=== PATIENT | female | born 1980 | race Caucasian/White ===

== ENCOUNTER 2019-01-05 14:17 | Emergency (ER) | payer SELFPAY ==
[2019-01-05] MEDS ORDERED: FENTANYL CITR 100 MCG/2 ML ONE (15:18)
[2019-01-05] MEDS ORDERED: NA CHLORIDE 0.9% 1,000 ML ONE (15:18)
[2019-01-05] MEDS ORDERED: LORazepam 2 MG/ML VIAL ONE (15:18)
[2019-01-05 15:29] LABS: Absolute Monocytes 0.5 K/uL (0.1-1.3); Absolute Neutrophil 8.6 K/uL (1.8-8.0); Basophils % 0.7 % (0-1.3); Eosinophils % 0.4 % (0-4.4); Hematocrit 41.9 % (36.0-45.0); Lymphocytes % 18.3 % (15.3-44.8); MPV 7.3 fL (7.6-11.3); RBC Red Blood Cell Count 4.43 M/uL (3.86-4.86)
--- NOTE | 2019-01-05 15:42 | RAD REPORT ---
EXAM DESCRIPTION: US - Abdomen Exam Limited - 01/05/2019 3:36 pm CLINICAL HISTORY: Abdominal pain COMPARISON: None. FINDINGS: Gallbladder size is normal. No gallstones, wall thickening or pericholecystic fluid. Commo n bile duct is normal with no common duct stone identified. The liver and spleen show no suspicious f indings. The pancreas is normal. No hydronephrosis or suspicious mass in either kidney. Aorta and IVC show no suspicious findings. No ascites or bulky lymphadenopathy. IMPRESSION: Normal abdominal ultrasound.
[2019-01-05 15:58] LABS: Bilirubin Direct 0.1 mg/dL (0-0.2); Bilirubin Total 0.4 mg/dL (0.2-1.0); Potassium 3.4 mmol/L (3.5-5.1); Protein, Total 7.3 g/dL (6.4-8.2); Thyroid Stimulating Hormone 1.18 uIU/mL (0.360-3.740)
[2019-01-05] MEDS ORDERED: SUCRALFATE 1 GM TABLET ONE (16:25)
--- NOTE | 2019-01-05 16:47 | ER ---
Nurse's Notes [facility] Name: Stephani Stock Age: 38 yrs Sex: Female : 1980 Arrival Date: 01/05/2019 Time: 14:18 Bed 2 Private MD: Diagnosis: Epigastric pain;Nausea Presentation: 01/05 14:35 Presenting complaint: Patient states: Intermittent epigastric pain radiating to ofe ph upper quadrants and back, also c/o nausea, denies V/D, symptoms began 3-4 days ago. Transition of care: patient was not received from another setting of care. Onset of symptoms was January 05, 2019. Risk Assessment: Do you want to hurt yourself or someone else? Patient reports no desire to harm self or others. Initial Sepsis Screen: Does the patient meet any 2 criteria? No. Patient's initial sepsis screen is negative. Does the patient have a suspected source of infection? No. Patient's initial sepsis screen is negative. Care prior to arrival: None. 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 - Social history:: Smoking status: Patient uses tobacco products, smokes one-half pack cigarettes per day. - Ebola Screening: : No symptoms or risks identified at this time. Screenin:39 Abuse screen: Denies threats or abuse. Denies injuries from another. Nutritional ph screening: No deficits noted. Tuberculosis screening: No symptoms or risk factors identified. Fall Risk None identified. Assessment: 14:30 General: Appears in no apparent distress. comfortable, well groomed, Behavior is calm, ph cooperative, appropriate for age, Denies fever. Pain: Complains of pain in epigastric area Pain radiates to right upper quadrant and left upper quadrant. Neuro: Level of Consciousness is awake, alert, obeys commands, Oriented to person, place, time, situation. Cardiovascular: Capillary refill < 3 seconds in bilateral fingers Patient's skin is warm and dry. Respiratory: Airway is patent Respiratory effort is even, unlabored, Respiratory pattern is regular, symmetrical, Denies shortness of breath. GI: Abdomen is flat, non-distended, Bowel sounds present X 4 quads. Reports epigastric pain, nausea, Patient currently denies diarrhea, vomiting. Derm: Skin is intact, is healthy with good turgor, Skin is pink, warm \T\ dry. 16:00 Reassessment: Patient appears in no apparent distress at this time. Patient and/or ph family updated on plan of care and expected duration. Pain level reassessed. Patient is alert, oriented x 3, equal unlabored respirations, skin warm/dry/pink. Pt resting quietly, awaiting lab and US results. Vital Signs: 14:36 BP 150 / 90; Pulse 86; Resp 18; Temp 98.0; Pulse Ox 100% on R/A; Weight 72.57 kg; ph 15:30 BP 144 / 93; Pulse 75; Resp 16; Pulse Ox 99% on R/A; ph 16:04 BP 136 / 87; Pulse 76; Resp 18; Pulse Ox 98% on R/A; ph ED Course: 14:18 Patient arrived in ED. ph 14:20 aLvinia Lazar [facility]C [facility]. snw 14:20 Jr Muñoz MD is Attending Physician. snw 14:34 Yessi Blackman, CLAUDIA is Primary Nurse. ph 14:36 Triage completed. ph 14:39 Arm band placed on. ph 15:00 Patient has correct armband on for positive identification. Bed in low position. Call ph light in reach. Side rails up X 1. Pulse ox on. NIBP on. Warm blanket given. 15:18 Ultrasound completed. Patient tolerated well. sg3 15:26 Inserted saline lock: 22 gauge in right forearm, using aseptic technique. Blood ph collected. 15:36 US Abdomen Limited In Process Unspecified. EDMS 17:20 No provider procedures requiring assistance completed. IV discontinued, intact, ph bleeding controlled, No redness/swelling at site. Pressure dressing applied. Administered Medications: 15:25 Drug: NS 0.9% 1000 ml Route: IV; Rate: 1 bolus; Site: left forearm; ph 16:26 Follow up: Response: No adverse reaction; IV Status: Completed infusion ph 15:25 Drug: fentaNYL (PF) 25 mcg Route: IVP; Site: left forearm; ph 16:26 Follow up: Response: No adverse reaction ph 15:25 Drug: Ativan 1 mg Route: IVP; Site: left forearm; ph 16:26 Follow up: Response: No adverse reaction ph 16:27 Drug: CarafATE 1 grams Route: PO; ph 16:27 Follow up: Response: No adverse reaction ph 17:19 Drug: Bentyl 20 mg Route: PO; ph 17:20 Follow up: Response: No adverse reaction ph Outcome: 16:45 Discharge ordered by MD. lindsay 17:22 Patient left the ED. ph 17:22 Discharged to home ambulatory. ph 17:22 Condition: good 17:22 Discharge instructions given to patient, Instructed on discharge instructions, follow up and referral plans. medication usage, Demonstrated understanding of instructions, follow-up care, medications, Prescriptions given X 2. Signatures: Dispatcher [employer] EDMS Lavinia Lazar, LUCIC MICA PARTS SPRAYER-Yessi Mclaughlin RN RN Astrid Reyes sg3 Corrections: (The following items were deleted from the chart) 16:04 15:30 BP 136 / 87; Pulse 76bpm; Resp 18bpm; Pulse Ox 98% RA; ph ph
--- NOTE | 2019-01-05 16:47 | EDPHYS ---
Physician Documentation [facility] Name: Stephani Stock Age: 38 yrs Sex: Female : 1980 Arrival Date: 01/05/2019 Time: 14:18 Bed 2 Private MD: ED Physician Jr Muñoz HPI: 01/05 15:05 This 38 yrs old Female presents to ER via Ambulatory with complaints of snw Epigastric Pain. 15:05 The patient presents with abdominal pain in the epigastric area, in the upper abdomen. snw Onset: The symptoms/episode began/occurred suddenly, 4 day(s) ago, and became worse and became persistent. The symptoms do not radiate. Associated signs and symptoms: Pertinent positives: nausea. The symptoms are described as crampy. Severity of pain: At its worst the pain was severe incapacitating. The patient has not experienced similar symptoms in the past. It is unknown whether or not the patient has recently seen a physician. recent 22lb wt loss in 2 months (unintentional). 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 - Social history:: Smoking status: Patient uses tobacco products, smokes one-half pack cigarettes per day. - Ebola Screening: : No symptoms or risks identified at this time. ROS: 15:04 Constitutional: Negative for fever, chills, and weight loss, Eyes: Negative for injury, snw pain, redness, and discharge, ENT: Negative for injury, pain, and discharge, Neck: Negative for injury, pain, and swelling, Cardiovascular: Negative for chest pain, palpitations, and edema, Respiratory: Negative for shortness of breath, cough, wheezing, and pleuritic chest pain, Back: Negative for injury and pain, : Negative for injury, bleeding, discharge, and swelling, MS/Extremity: Negative for injury and deformity, Skin: Negative for injury, rash, and discoloration, Neuro: Negative for headache, weakness, numbness, tingling, and seizure, Psych: Negative for depression, anxiety, suicide ideation, homicidal ideation, and hallucinations. 15:04 Abdomen/GI: Positive for nausea, abdominal cramps. Exam: 15:04 Constitutional: This is a well developed, well nourished patient who is awake, alert, snw and in no acute distress. Head/Face: Normocephalic, atraumatic. Eyes: Pupils equal round and reactive to light, extra-ocular motions intact. Lids and lashes normal. Conjunctiva and sclera are non-icteric and not injected. Cornea within normal limits. Periorbital areas with no swelling, redness, or edema. ENT: Nares patent. No nasal discharge, no septal abnormalities noted. Tympanic membranes are normal and external auditory canals are clear. Oropharynx with no redness, swelling, or masses, exudates, or evidence of obstruction, uvula midline. Mucous membranes moist. Neck: Trachea midline, no thyromegaly or masses palpated, and no cervical lymphadenopathy. Supple, full range of motion without nuchal rigidity, or vertebral point tenderness. No Meningismus. Chest/axilla: Normal chest wall appearance and motion. Nontender with no deformity. No lesions are appreciated. Cardiovascular: Regular rate and rhythm with a normal S1 and S2. No gallops, murmurs, or rubs. Normal PMI, no JVD. No pulse deficits. Respiratory: Lungs have equal breath sounds bilaterally, clear to auscultation and percussion. No rales, rhonchi or wheezes noted. No increased work of breathing, no retractions or nasal flaring. Back: No spinal tenderness. No costovertebral tenderness. Full range of motion. Skin: Warm, dry with normal turgor. Normal color with no rashes, no lesions, and no evidence of cellulitis. MS/ Extremity: Pulses equal, no cyanosis. Neurovascular intact. Full, normal range of motion. Neuro: Awake and alert, GCS 15, oriented to person, place, time, and situation. Cranial nerves II-XII grossly intact. Motor strength 5/5 in all extremities. Sensory grossly intact. Cerebellar exam normal. Normal gait. 15:04 Abdomen/GI: Inspection: abdomen appears normal, Bowel sounds: normal, Palpation: moderate abdominal tenderness, in the right upper quadrant and left upper quadrant. 16:42 ECG was reviewed by the Attending Physician. snw Vital Signs: 14:36 BP 150 / 90; Pulse 86; Resp 18; Temp 98.0; Pulse Ox 100% on R/A; Weight 72.57 kg; ph 15:30 BP 144 / 93; Pulse 75; Resp 16; Pulse Ox 99% on R/A; ph 16:04 BP 136 / 87; Pulse 76; Resp 18; Pulse Ox 98% on R/A; ph MDM: 14:21 Patient medically screened. snw 16:47 Data reviewed: vital signs, nurses notes. Data interpreted: Pulse oximetry: on room air snw is 98 %. Interpretation: normal. Counseling: I had a detailed discussion with the patient and/or guardian regarding: the historical points, exam findings, and any diagnostic results supporting the discharge/admit diagnosis, the presence of at least one elevated blood pressure reading (>120/80) during this emergency department visit, lab results, radiology results, the need for outpatient follow up, to return to the emergency department if symptoms worsen or persist or if there are any questions or concerns that arise at home. Special discussion: Based on the patient's history, exam, and Dx evaluation, there is no indication for emergent intervention or inpatient Tx. It is understood by the patient/guardian that if the Sx's persist or worsen they need to return immediately for re-evaluation. Based on the patient's Hx, exam, and Dx evaluation, there is no indication for emergent surgery or inpatient Tx. It is understood by the patient/guardian that if the Sx's persist or worsen they need to return immediately for re-evaluation. Based on the history and exam findings, there is no indication for further emergent testing or inpatient evaluation. 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 I discussed with the patient/guardian the need to see the primary care provider for further evaluation of the symptoms. 01/05 14:33 Order name: Basic Metabolic Panel; Complete Time: 16: snw 01/05 14:33 Order name: CBC with Diff; Complete Time: 15:37 snw 01/05 14:33 Order name: Hepatic Function; Complete Time: 16: snw 01/05 14:33 Order name: Lipase; Complete Time: 16:01 snw 01/05 14:33 Order name: TSH; Complete Time: 16: 01/05 14:33 Order name: Test, Serum; Complete Time: 15:45 01/05 14:33 Order name: IV Saline Lock; Complete Time: 15:26 01/05 14:33 Order name: US Abdomen Limited; Complete Time: 15:45 01/05 16:02 Order name: EKG; Complete Time: 16:02 01/05 14:33 Order name: Labs collected and sent; Complete Time: 15:01/05 16:02 Order name: EKG - Nurse/Tech; Complete Time: 16:26 snw Administered Medications: 15:25 Drug: NS 0.9% 1000 ml Route: IV; Rate: 1 bolus; Site: left forearm; ph 16:26 Follow up: Response: No adverse reaction; IV Status: Completed infusion ph 15:25 Drug: fentaNYL (PF) 25 mcg Route: IVP; Site: left forearm; ph 16:26 Follow up: Response: No adverse reaction ph 15:25 Drug: Ativan 1 mg Route: IVP; Site: left forearm; ph 16:26 Follow up: Response: No adverse reaction ph 16:27 Drug: CarafATE 1 grams Route: PO; ph 16:27 Follow up: Response: No adverse reaction ph 17:19 Drug: Bentyl 20 mg Route: PO; ph 17:20 Follow up: Response: No adverse reaction ph Disposition: 17:35 Co-signature as Attending Physician, Jr Muñoz MD I agree with the assessment and kdr plan of care. Disposition: 01/05/19 16:45 Discharged to Home. Impression: Epigastric pain, Nausea. - Condition is Stable. - Discharge Instructions: Abdominal Pain, Adult, Gastritis, Adult, Nausea, Adult, Upper Endoscopy, Upper Endoscopy, Care After, [place] Diet. - Prescriptions for Bentyl 20 mg Oral Tablet - take 1 tablet by ORAL route every 6 hours As needed; 20 tablet. Protonix 40 mg Oral Tablet - take 1 tablet by ORAL route once daily; 30 tablet. promethazine 25 mg Oral Tablet - take 1 tablet by ORAL route every 6 hours As needed; 20 tablet. - Work release form, Medication Reconciliation Form, Thank You Letter, Antibiotic Education, Prescription Opioid Use form. - Follow up: Private Physician; When: 2 - 3 days; Reason: Recheck today's complaints, Continuance of care, Re-evaluation by your physician. Follow up: Emergency Department; When: As needed; Reason: Worsening of condition. Signatures: Dispatcher [employer] Jr Norwood MD MD [facility] Lavinia Lazar, DEB-C MUFFLER TENDER-Yessi Mclaughlin RN RN ph Corrections: (The following items were deleted from the chart) 17:22 16:45 01/05/2019 16:45 Discharged to Home. Impression: Epigastric pain; Nausea. ph Condition is Stable. Forms are Medication Reconciliation Form, Thank You Letter, Antibiotic Education, Prescription Opioid Use. Follow up: Private Physician; When: 2 - 3 days; Reason: Recheck today's complaints, Continuance of care, Re-evaluation by your physician. Follow up: Emergency Department; When: As needed; Reason: Worsening of condition. snw
[2019-01-05] MEDS ORDERED: DICYCLOMINE HCL 10 MG CAP ONE (17:14)
--- NOTE | 2019-01-07 07:49 | EKG ---
Test Date: 2019-01-05 Test Time: 16:15:35 Gas Pumper: CRISTINA MEASUREMENT RESULTS: Intervals: Rate: 76 VA: 184 QRSD: 80 QT: 376 QTc: 423 [place]: P: 43 VA: 184 QRS: 49 T: 54 INTERPRETIVE STATEMENTS: Normal sinus rhythm Normal ECG No previous ECG available for comparison Electronically Signed On 01-07-19 07:48:38 CDT by Isidro Nicholson
== END 2019-01-05 17:22 | disposition home or self-care (01) ==
LOC: ER 14:17
DX: R10.13 Epigastric pain (principal); R11.0 Nausea; F17.210 Nicotine dependence, cigarettes, uncomplicated
CPT/HCPCS: 36415; 76705; 80048; 80076; 83690; 84443; 84703; 85025; 93005; 96361; 96374; 96375; 99284; J3010; J7030

== ENCOUNTER 2019-10-09 12:32 | Emergency (ER) | payer SELFPAY ==
[2019-10-09] MEDS ORDERED: LIDOCAINE 1% MPF 30 ML VIAL ONE (13:39)
[2019-10-09] MEDS ORDERED: LORazepam 2 MG/ML VIAL ONE (14:56)
[2019-10-09] MEDS ORDERED: HYDROMORPHONE HCL 0.5 MG/0.5 ML INJ ONE (14:57)
[2019-10-09] MEDS ORDERED: ONDANSETRON 4 MG/2 ML VIAL ONE (14:57)
[2019-10-09] MEDS ORDERED: LIDOCAINE VISCOUS 2% SOLN 15 ML UDC ONE (15:18)
[2019-10-09] MEDS ORDERED: CLINDAMYCIN 900MG/D5W 900 MG/50 ML IVPB IV ONE (15:58)
--- NOTE | 2019-10-09 16:38 | EDPHYS ---
Physician Documentation [facility] Name: Stephani Stock Age: 39 yrs Sex: Female : 1980 Arrival Date: 10/09/2019 Time: 12:35 Bed 5 Private MD: ED Physician Juarez Dias HPI: 10/09 13:44 This 39 yrs old Female presents to ER via Ambulatory with complaints of jmm Abscess. 13:44 the patient presents with a swollen area of the left labia majora. Onset: The jmm symptoms/episode began/occurred gradually, 1 day(s) ago. Possible cause(s): unknown. Associated signs and symptoms: Pertinent negatives: fever. Modifying factors: the symptoms are alleviated by nothing, the symptoms are aggravated by pressure. This is a 39 year old female with no chronic medical conditions that presents to the ED with complaints of left labial swelling worsening over the past day. Patient has had similar Bartholin cysts in the past. Denies fever or chills. . 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 - Social history:: Smoking status: Patient reports the use of cigarette tobacco products, smokes one-half pack cigarettes per day. - Ebola Screening: : Patient negative for fever greater than or equal to 101.5 degrees Fahrenheit, and additional compatible Ebola Virus Disease symptoms Patient denies exposure to infectious person Patient denies travel to an Ebola-affected area in the 21 days before illness onset No symptoms or risks identified at this time. ROS: 13:44 Constitutional: Negative for fever, chills, and weight loss, Cardiovascular: Negative jmm for chest pain, palpitations, and edema, Respiratory: Negative for shortness of breath, cough, wheezing, and pleuritic chest pain. 13:44 Back: Negative for injury and pain, MS/Extremity: Negative for injury and deformity, Neuro: Negative for headache, weakness, numbness, tingling, and seizure. 13:44 : Positive for vaginal swelling. 13:44 All other systems are negative. Exam: 13:44 Constitutional: This is a well developed, well nourished patient who is awake, alert, jmm and in no acute distress. Head/Face: atraumatic. Eyes: EOMI, no conjunctival erythema appreciated ENT: Moist Mucus Membranes Neck: Trachea midline, Supple Chest/axilla: Normal chest wall appearance and motion. Cardiovascular: Regular rate and rhythm. No edema appreciated Respiratory: Normal respirations, no respiratory distress appreciated Abdomen/GI: Non distended, soft Back: Normal ROM Skin: General appearance color normal 13:44 MS/ Extremity: Moves all extremities, no obvious deformities appreciated, no edema noted to the lower extremities Neuro: Awake and alert, normal gait Psych: Behavior is normal, Mood is normal, Patient is cooperative and pleasant 13:44 : swelling with fluctuance noted to the left labia. 13:44 : Pelvic Exam: External exam: Bartholin's cyst present, Speculum exam: Vital Signs: 13:14 BP 128 / 72; Pulse 119; Resp 18; Temp 98.2; Pulse Ox 100% on R/A; Weight 81.65 kg; iw Height 5 ft. 3 in. (160.02 cm); Pain 9/10; 14:54 BP 131 / 84; Pulse 117; Resp 18; Pulse Ox 100% ; sv 15:57 BP 123 / 76; Pulse 94; Resp 17; Pulse Ox 100% ; sv 13:14 Body Mass Index 31.89 (81.65 kg, 160.02 cm) iw Procedures: 13:44 I \T\ D: Incision and drainage was performed for an abscess of the left Bartholin's jmm gland. Prepped with Betadine, Anesthetized with 5 ml's 1% Lidocaine. Incised with #11 blade. Drained large amount purulent fluid. Packed with word. the patient tolerated the procedure well. MDM: 13:44 [facility] screened[facility] 16:30 Data reviewed: vital signs, nurses notes. Counseling: I had a detailed discussion with nino the patient and/or guardian regarding: the historical points, exam findings, and any diagnostic results supporting the discharge/admit diagnosis, lab results, the need for outpatient follow up, to return to the emergency department if symptoms worsen or persist or if there are any questions or concerns that arise at home. 16:30 ED course: Patient is alert and non toxic in appearance in the ED. [facility] in [facility] the [facility]. Patient advised to follow up with pcp and otherwise given strict return precautions. . 10/09 13:35 Order name: Incision \T\ Drainage Setup; Complete Time: 16:02 [facility] 10/09 13:35 Order name: Misc. Order: word catheter; Complete Time: 16:02 [facility] 10/09 15:23 Order name: IV; Complete Time: 15:24 aa5 Administered Medications: 15:11 Drug: Viscous Lidocaine Liquid (4 %) 10 ml {Note: applied to cyst .} Route: Mucous aa5 Membrane; 15:24 Drug: Zofran 4 mg Route: IVP; Site: right hand; aa5 15:35 Follow up: Response: No adverse reaction aa5 15:26 Drug: Ativan 1 mg Route: IVP; Site: right hand; aa5 15:35 Follow up: Response: Anxiety decreased aa5 15:27 Drug: Dilaudid 0.5 mg Route: IVP; Site: right hand; aa5 15:35 Follow up: Response: No adverse reaction aa5 15:35 Drug: Lidocaine (1 %) 20 ml {Note: administered to cyst by PA for I\T\D.} Volume: 20 ml; aa5 Route: Infiltration; 15:54 Drug: Clindamycin 900 mg Route: IVPB; Infused Over: 30 mins; Site: right hand; aa5 16:25 Follow up: Response: No adverse reaction; IV Status: Completed infusion aa5 Disposition: 19:12 Co-signature as Attending Physician, Juarez Dias MD. rn Disposition: 10/09/19 16:38 Discharged to Home. Impression: Cyst of Bartholin's gland. - Condition is Stable. - Discharge Instructions: Bartholin Cyst or Abscess. - Prescriptions for Zofran ODT 4 mg Oral tablet,disintegrating - place 1 tablet by TRANSLINGUAL route every 4-6 hours; 20 tablet. Clindamycin HCl 300 mg Oral Capsule - take 1 capsule by ORAL route every 6 hours for 10 days; 40 capsule. Tramadol 50 mg Oral Tablet - take 1 tablet by ORAL route every 8 hours as needed; 20 tablet. - Medication Reconciliation Form, Thank You Letter, Antibiotic Education, Prescription Opioid Use form. - Follow up: Private Physician; When: 2 - 3 days; Reason: Recheck today's complaints, Continuance of care, Re-evaluation by your physician. Signatures: Maylin Moreno RN RN sv Mickail, Joel, PA PA jmm Williams, Irene RN Juarez Sanchez MD MD rn Calderon, Audri, RN RN aa5 Corrections: (The following items were deleted from the chart) 17:17 16:38 10/09/2019 16:38 Discharged to Home. Impression: Cyst of Bartholin's gland. sv Condition is Stable. Forms are Medication Reconciliation Form, Thank You Letter, Antibiotic Education, Prescription Opioid Use. Follow up: Private Physician; When: 2 - 3 days; Reason: Recheck today's complaints, Continuance of care, Re-evaluation by your physician. nino
--- NOTE | 2019-10-09 16:38 | ER ---
Nurse's Notes [facility] Name: Stephani Stock Age: 39 yrs Sex: Female : 1980 Arrival Date: 10/09/2019 Time: 12:35 Bed 5 Private MD: Diagnosis: Cyst of Bartholin's gland Presentation: 10/09 13:12 Presenting complaint: Patient states: has a Bartholin's cyst and has increased in size iw over past 24 hours. Transition of care: patient was not received from another setting of care. Onset of symptoms was October 07, 2019. Risk Assessment: Do you want to hurt yourself or someone else? Patient reports no desire to harm self or others. Initial Sepsis Screen: Does the patient meet any 2 criteria? No. Patient's initial sepsis screen is negative. Does the patient have a suspected source of infection? No. Patient's initial sepsis screen is negative. Care prior to arrival: None. 13:12 Method Of Arrival: Ambulatory iw 13:12 Acuity: [address] ME[address]IC: 13:14 LMP 10/04/2019 iw Historical: - Allergies: 13:14 No Known Allergies; iw - Home Meds: 13:14 None [Active]; iw - PMHx: 13:14 None; iw - PSHx: 13:14 Bartholin cyst; thumb removed; iw - Immunization history:: Adult Immunizations not up to date. - Social history:: Smoking status: Patient reports the use of cigarette tobacco products, smokes one-half pack cigarettes per day. - Ebola Screening: : Patient negative for fever greater than or equal to 101.5 degrees Fahrenheit, and additional compatible Ebola Virus Disease symptoms Patient denies exposure to infectious person Patient denies travel to an Ebola-affected area in the 21 days before illness onset No symptoms or risks identified at this time. Screenin:00 Abuse screen: Denies threats or abuse. Nutritional screening: No deficits noted. aa5 Tuberculosis screening: No symptoms or risk factors identified. Fall Risk None identified. Assessment: 13:40 General: Appears uncomfortable, Behavior is cooperative, anxious. Pain: Complains of aa5 pain in left labia majora and left labia minora Pain does not radiate. Pain currently is 9 out of 10 on a pain scale. Quality of pain is described as tender, Pain began 2-3 days ago. Is continuous. Neuro: Level of Consciousness is awake, alert, obeys commands, Oriented to person, place, time, situation. Cardiovascular: Patient's skin is warm and dry. Respiratory: Airway is patent Respiratory effort is even, unlabored, Respiratory pattern is regular, symmetrical. GI: No signs and/or symptoms were reported involving the gastrointestinal system. : No signs and/or symptoms were reported regarding the genitourinary system. EENT: No signs and/or symptoms were reported regarding the EENT system. Derm: Skin is pink, warm \T\ dry. Abscess located on left labia minora is golf ball sized with large amount of swelling noted to labia minora and labia majora. Musculoskeletal: Range of motion: intact in all extremities. 15:45 Reassessment: Patient is alert, oriented x 3, equal unlabored respirations, skin aa5 warm/dry/pink. Patient states feeling better. 17:00 Reassessment: Patient is alert, oriented x 3, equal unlabored respirations, skin aa5 warm/dry/pink. Awaiting ride home . Vital Signs: 13:14 BP 128 / 72; Pulse 119; Resp 18; Temp 98.2; Pulse Ox 100% on R/A; Weight 81.65 kg; iw Height 5 ft. 3 in. (160.02 cm); Pain 9/10; 14:54 BP 131 / 84; Pulse 117; Resp 18; Pulse Ox 100% ; sv 15:57 BP 123 / 76; Pulse 94; Resp 17; Pulse Ox 100% ; sv 13:14 Body Mass Index 31.89 (81.65 kg, 160.02 cm) ED Course: 12:35 Patient arrived in ED. mr 13:13 Triage completed. iw 13:14 Arm band placed on. iw 13:32 Samm Diego PA is PHCP. [facility] 13:32 Juarez Dias MD is Attending Physician. [facility] 13:35 Nina Galarza, CLAUDIA is Primary Nurse. aa5 13:40 Patient has correct armband on for positive identification. Placed in gown. Bed in low aa5 position. Call light in reach. Side rails up X2. Pulse ox on. NIBP on. 15:40 Assist provider with I \T\ D: of an abscess on left labia Set up I\T\D tray. Performed by aa 5 Samm HALL Dressing with 4X4s, Patient tolerated well. word catheter placed by RAFAEL. Large amount of brownish purulent drainage noted. 17:00 IV discontinued, intact, bleeding controlled, No redness/swelling at site. Pressure aa5 dressing applied. Administered Medications: 15:11 Drug: Viscous Lidocaine Liquid (4 %) 10 ml {Note: applied to cyst .} Route: Mucous aa5 Membrane; 15:24 Drug: Zofran 4 mg Route: IVP; Site: right hand; aa5 15:35 Follow up: Response: No adverse reaction aa5 15:26 Drug: Ativan 1 mg Route: IVP; Site: right hand; aa5 15:35 Follow up: Response: Anxiety decreased aa5 15:27 Drug: Dilaudid 0.5 mg Route: IVP; Site: right hand; aa5 15:35 Follow up: Response: No adverse reaction aa5 15:35 Drug: Lidocaine (1 %) 20 ml {Note: administered to cyst by PA for I\T\D.} Volume: 20 ml; aa5 Route: Infiltration; 15:54 Drug: Clindamycin 900 mg Route: IVPB; Infused Over: 30 mins; Site: right hand; aa5 16:25 Follow up: Response: No adverse reaction; IV Status: Completed infusion aa5 Outcome: 16:38 Discharge ordered by MD. oneill 17:15 Discharged to home ambulatory, with friend. aa5 17:15 Condition: improved 17:15 Discharge instructions given to patient, Instructed on discharge instructions, follow up and referral plans. medication usage, Demonstrated understanding of instructions, follow-up care, medications, Prescriptions given X 3. 17:17 Patient left the ED. sv Signatures: Maylin Moreno RN RN sv Mickail, Joel, PA PA jmm Rivera, Mary mr Williams, Irene, RN RN iw Calderon, Audri, RN RN aa5 Corrections: (The following items were deleted from the chart) 16:05 15:35 Lidocaine (1 %) 20 ml 20 ml Infiltration 20 ml aa5 aa5 16:20 15:40 Assist provider with I \T\ D: of an abscess on left labia Set up I\T\D tray. aa 5 Performed by Samm Mickail PA Patient tolerated well. word catheter placed by PA aa5
[2019-10-09 23:51] VITALS: TEMP 98.2; O2SAT 100
[2019-10-09 23:54] VITALS: BP 123/76
== END 2019-10-09 17:17 | disposition home or self-care (01) ==
LOC: ER 12:32
PROC: 0U9L0ZZ Drainage of Vestibular Gland, Open Approach (ICD-10-PCS; principal; 2019-10-09)
DX: N75.0 Cyst of Bartholin's gland (principal); F17.210 Nicotine dependence, cigarettes, uncomplicated
CPT/HCPCS: 96365; 96375; 99284; J1170; J2405